=== PATIENT | female | born 1975 | race Caucasian/White ===

== ENCOUNTER 2019-07-19 14:47 | Outpatient (CLI) | payer OTHER, SELFPAY ==
--- NOTE | 2019-07-19 14:53 | US_ITS ---
WS: [id number] ULTRASOUND THYROID TECHNIQUE: Ultrasound of the thyroid. CLINICAL INFORMATION: THYROMEGALY BY HX/FATIGUE COMPARISON: None. FINDINGS: Thyroid: Right and left thyroid lobes are normal in size and echotexture. Right thyroid lobe: 5.6 cm x 1.1 cm x 1.6 cm Left thyroid lobe: 4.2 cm x 1.3 cm x 1.8 cm. Tiny 3.7 x 2.0 x 4.5 mm hypoechoic cystic appearing nodule. No other nodules. Isthmus: 0.3 mm. Cervical lymphadenopathy: None. US/US thyroid [id number] IMPRESSION: 1. Tiny subcentimeter 4.5 mm hypoechoic cystic-appearing left thyroid nodule. This is likely incidental. 2. No right-sided nodules. 3. No other abnormalities
== END 2019-07-19 14:48 | disposition home or self-care (01) ==
LOC: RAD 14:48
PROVIDERS: Family Provider Family Medicine; PCP Family Medicine; Visit Provider Nurse Practitioner Family
DX: E01.0 Iodine-deficiency related diffuse (endemic) goiter (principal); E04.1 Nontoxic single thyroid nodule; R53.83 Other fatigue
CPT/HCPCS: 76536

== ENCOUNTER 2020-06-03 11:06 | Outpatient (CLI) | payer OTHER, SELFPAY ==
--- NOTE | 2020-06-03 | XRR_ITS ---
PROCEDURE INFORMATION: Exam: XR Chest, 2 Views Exam date and time: 06/03/2020 12:12 PM Age: 44 years old Clinical indication: Cough TECHNIQUE: Imaging protocol: XR of the chest Views: 2 views. COMPARISON: No relevant prior studies available. FINDINGS: Lungs: Unremarkable. No consolidation. Pleural space: Unremarkable. No pleural effusion. No pneumothorax. Heart/Mediastinum: Unremarkable. No cardiomegaly. Bones/joints: Unremarkable. XR/XR chest 2V* [id number] IMPRESSION: No acute findings.
== END 2020-06-03 11:07 | disposition home or self-care (01) ==
LOC: RAD 11:10
PROVIDERS: Family Provider Family Medicine; PCP Family Medicine; Visit Provider Nurse Practitioner Family
DX: R05 Cough (principal)
CPT/HCPCS: 71046

== ENCOUNTER → 2021-01-24 09:32 | Outpatient (BNVA) | payer OTHER, SELFPAY | PROVIDERS: Family Provider Family Medicine; PCP Family Medicine; Visit Provider Nurse Practitioner Family | DX: I10 Essential (primary) hypertension (principal) | CPT/HCPCS: 80053; 80061; 83036; 84443; 85025 ==

== ENCOUNTER 2022-08-07 12:15 | Outpatient (CLI) | payer OTHER, SELFPAY ==
--- NOTE | 2022-08-07 12:37 | US_ITS ---
WS: [id number] THYROID ULTRASOUND HISTORY: THYROMEGALY COMPARISON: 07/19/2019 Right lobe: 1.1 cm x 2.1 cm x 4.6 cm (w x ap x l). Volume: 5.7 cm3. Normal size gland with a few scattered colloid cysts. No solid mass or echogenic foci. Left lobe: 1.3 cm x 1.5 cm x 4.2 cm (w x ap x l). Volume: 4.2 cm3. Normal size and echotexture. No significant or dominant nodules are present. Isthmus: 0.3 cm. US/US thyroid [id number] IMPRESSION: 1. Colloid cyst RIGHT thyroid are subcentimeter. 2. No solid mass. 3. No adverse change since the prior thyroid ultrasound 07/19/2019.
== END 2022-08-07 12:16 | disposition home or self-care (01) ==
PROVIDERS: PCP Nurse Practitioner Family; Visit Provider Nurse Practitioner Family
DX: E01.0 Iodine-deficiency related diffuse (endemic) goiter (principal)
CPT/HCPCS: 76536